=== PATIENT | male | born 1985 | race Caucasian/White ===

== ENCOUNTER 2021-06-14 03:19 | Emergency (ER) | payer MEDICARE, OTHER ==
[2021-06-14] MEDS ORDERED: BACTRIM 400-801 EACH PO (06:53)
== END 2021-06-14 08:35 | disposition home or self-care (01) ==
LOC: ER1 03:19
DX: L03.213 Periorbital cellulitis (principal); F17.210 Nicotine dependence, cigarettes, uncomplicated
CPT/HCPCS: 73630; 96374; 99283; J3370

== ENCOUNTER 2021-07-08 20:13 | Emergency (ER) | payer MEDICARE, OTHER ==
[~2021-07-08 20:13] MED LIST: BACTRIM 400-801 EACH PO
[2021-07-08 20:49] LABS: HEMOGLOBIN 16.1 gm/dl (14.0-17.5); RED BLOOD COUNT 4.95 M/UL (4.20-5.50); WHITE BLOOD COUNT 10.9 K/UL (4.5-11.0)
[2021-07-08 21:09] LABS: BUN/CREATININE RATIO 10 (0-10)
== END 2021-07-08 23:30 | disposition home or self-care (01) ==
LOC: ER1 20:13
PROVIDERS: Physician Assistant Medical
DX: R07.9 Chest pain, unspecified (principal); F17.200 Nicotine dependence, unspecified, uncomplicated; M54.9 Dorsalgia, unspecified; R10.9 Unspecified abdominal pain
CPT/HCPCS: 71045; 80053; 82550; 82553; 83690; 83874; 84484; 85025; 93005; 99285